=== PATIENT | male | born 1950 | race African-American/Black ===

== ENCOUNTER 2022-06-23 18:57 | Emergency (ER) | payer OTHER, MEDICAID ==
[~2022-06-23] VITALS: Ht 172.7 cm; Wt 117.9 kg
[2022-06-23] MEDS ORDERED: levETIRAcetam 500 MG IV PREMIX 100 ML IV ONE (19:00)
[2022-06-23 19:01] VITALS: BP_SYST 164
--- NOTE | 2022-06-23 19:09 | NUR ---
Placed in room 08 . Placed on monitoring and evaluation advisor, blood pressure machine and pulse oximeter. To gown for exam. Side rails up. Report given to Denisha BRAVO
[2022-06-23 19:32] LABS: BASOPHILS % (AUTO) 0.5 % (0.0-2.0); EOSINOPHILS # (AUTO) 0.2 K/uL (0.0-0.4); EOSINOPHILS % (AUTO) 2.7 % (0.0-4.0); HEMATOCRIT 44.1 % (36-54); HEMOGLOBIN 14.7 g/dL (14.0-18.0); LYMPHOCYTES # (AUTO) 0.9 K/uL (1.0-5.5); LYMPHOCYTES % (AUTO) 13.3 % (20.5-51.5); MEAN CORPUSCULAR HEMOGLOBIN 29 pg (27-31); MEAN CORPUSCULAR HGB CONC 33 % (32-36); MEAN CORPUSCULAR VOLUME 87 fL (79.0-98.0); MONOCYTES # (AUTO) 0.6 K/uL (0.0-1.0); MONOCYTES % (AUTO) 9.3 % (1.7-9.3); NEUTROPHILS # (AUTO) 4.9 K/uL (1.8-7.7); NEUTROPHILS % (AUTO) 74.2 % (40.0-70.0); PLATELET COUNT (AUTO) 218 K/uL (130-430); RED BLOOD CELL COUNT(AUTO) 5.08 MIL/uL (4.2-6.2); RED CELL DISTRIBUTION WIDTH 13.5 % (9.0-15.0); WHITE BLOOD COUNT (AUTO) 6.6 K/uL (4.8-10.8)
--- NOTE | 2022-06-23 19:35 | NUR ---
REPORT FROM CHARGE NURSE. S/P SEVERO LOASTING 30SEC, 20PTA. PT ORIENTED TO NAME ONLY.
[2022-06-23 19:50] LABS: VALPROIC ACID 10 ug/mL (50-100)
[2022-06-23 19:59] LABS: ANION GAP 7 (5-15); CHLORIDE 104 mmol/L (98-107); CREATININE 0.67 mg/dL (0.55-1.30); GLUCOSE 134 mg/dL (70-99); POTASSIUM 3.7 mmol/L (3.5-5.1); SODIUM SERUM 140 mmol/L (136-145); UREA NITROGEN, BLOOD 20 mg/dL (8-21)
[2022-06-23] MEDS ORDERED: VALPROIC ACID 250 MG CAPSULE (DEPAKENE) PO ONE (20:00)
[2022-06-23 20:10] LABS: ALANINE AMINOTRANSFERASE 30 U/L (12-78); ALBUMIN 2.6 g/dL (3.4-4.8); ASPARTATE AMINOTRANSFERASE 32 U/L (10-37); TOTAL BILIRUBIN 0.1 mg/dL (0.0-1.0)
[2022-06-23] MEDS ORDERED: PHENobarbital SODIUM 65 MG/ML VIAL IM ONE (20:30)
[2022-06-23] MEDS ORDERED: ACET325T GT (20:38)
[2022-06-23] MEDS ORDERED: LIP40 GT (20:39)
[2022-06-23] MEDS ORDERED: BACL10TA GT (20:41)
[2022-06-23] MEDS ORDERED: DOCU-144 GT (20:42)
[2022-06-23] MEDS ORDERED: BISA10SU61 RC (20:43)
[2022-06-23] MEDS ORDERED: VALPROIC ACID 250 MG CAPSULE (DEPAKENE) ONE (20:43)
[2022-06-23] MEDS ORDERED: FINA5TAB3 GT (20:45)
[2022-06-23] MEDS ORDERED: FLEETMO RC (20:47)
[2022-06-23] MEDS ORDERED: NEU300 GT (20:54)
[2022-06-23] MEDS ORDERED: LEVE100S GT (20:58)
[2022-06-23] MEDS ORDERED: MOM GT (21:00)
[2022-06-23] MEDS ORDERED: MULT9LIQ GT (21:03)
[2022-06-23] MEDS ORDERED: HYDR-3917 GT ×2 (21:04→21:05)
[2022-06-23] MEDS ORDERED: PHEN20EL5 GT (21:05)
[2022-06-23] MEDS ORDERED: VALP250S3 GT (21:06)
--- NOTE | 2022-06-23 21:07 | NUR ---
VALPROIC ACID 500MG CAPS GIVEN PER GT TUBE.
[2022-06-23 23:39] VITALS: BP_SYST 102
--- NOTE | 2022-06-23 23:42 | NUR ---
SHELLY VERGARA PT D/C BACK TO [facility]. REPORT CALLED TO SHELLY BROOSK [phone]. ALL PAPERWORK/ AFTERCARE SENT BACK BLS WITH [facility] UNIT #[id number]. PT STABLE FOR TRANSFER/ DISCHARGE. IV D/C TO RIGHT HAND WITH CATHINTACT AND PRESSURE DRESSING APPLIED
[2022-06-24 09:44] LABS: PHENOBARBITAL 36.3 ug/mL (15.0-40.0)
== END 2022-06-23 23:39 | disposition home or self-care (01) ==
LOC: SED 18:57
DX: R56.9 Unspecified convulsions (principal); Z79.899 Other long term (current) drug therapy
CPT/HCPCS: 99285; 96365; 80053; 80184; 80164; 85025; 36415; 96372; 83605; J2560; J1953